=== PATIENT | male | born 1970 | race Caucasian/White ===

== ENCOUNTER 2019-05-21 17:46 | Inpatient (IN) | payer BC, OTHER ==
[~2019-05-21] VITALS: Ht 167.6 cm; Wt 72.6 kg
--- NOTE | 2019-05-21 17:48 | NUR ---
Placed in room 3 . Placed on monitor worker, blood pressure machine and pulse oximeter. To gown for exam. Side rails up.Report received from Art RN
--- NOTE | 2019-05-21 17:50 | NUR ---
pt states he was watching the TV, he fell asleep, and felt dizzy. Pt does not report any other symptoms and is not in any distress. Will conitnue to monitor.
[2019-05-21 17:51] VITALS: BP_SYST 129
--- NOTE | 2019-05-21 17:58 | NUR ---
ER at bedside examining patient.
--- NOTE | 2019-05-21 18:05 | NUR ---
attempted to ambulate the pt per Dr. Oliver's. Pt was unsteady and begain leaning to the left side.
[2019-05-21] MEDS ORDERED: NACL 0.9% 1,000 ML IV ONE ×2 (18:07→20:45)
[2019-05-21] MEDS ORDERED: NACL 0.9% 2,000 ML IV ONE (18:15)
[2019-05-21 18:33] LABS: BILIRUBIN,URINE NEGATIVE (NEGATIVE); BLOOD, URINE NEGATIVE (NEGATIVE); CLARITY/URINE CLEAR (CLEAR); COLOR,URINE YELLOW (YELLOW); GLUCOSE,URINE NEGATIVE (NEGATIVE); KETONES,URINE NEGATIVE (NEGATIVE); LEUKOCYTE ESTERASE ,URINE NEGATIVE (NEGATIVE); NITRITE, URINE NEGATIVE (NEGATIVE); PROTEIN URINE NEGATIVE (NEGATIVE); UROBILINOGEN,URINE 0.2 (0.2-1.0)
[2019-05-21] MEDS ORDERED: MECLIZINE HCL 25 MG TABLET (ANITVERT) PO ONE (18:45)
--- NOTE | 2019-05-21 18:48 | NUR ---
Patient transported to radiology via WC, accompanied by rad staff.
[2019-05-21 18:55] LABS: BASOPHILS # (AUTO) 0.1 K/uL (0.0-0.2); BASOPHILS % (AUTO) 0.7 % (0.0-2.0); EOSINOPHILS # (AUTO) 0.2 K/uL (0.0-0.4); EOSINOPHILS % (AUTO) 2.1 % (0.0-4.0); HEMATOCRIT 51.9 % (36-54); HEMOGLOBIN 17.6 g/dL (14.0-18.0); LYMPHOCYTES # (AUTO) 2.9 K/uL (1.0-5.5); LYMPHOCYTES % (AUTO) 31.7 % (20.5-51.5); MEAN CORPUSCULAR HEMOGLOBIN 31 pg (27-31); MEAN CORPUSCULAR HGB CONC 34 % (32-36); MEAN CORPUSCULAR VOLUME 93 fL (79.0-98.0); MONOCYTES # (AUTO) 0.9 K/uL (0.0-1.0); NEUTROPHILS # (AUTO) 5.1 K/uL (1.8-7.7); NEUTROPHILS % (AUTO) 55.5 % (40.0-70.0); PLATELET COUNT (AUTO) 199 K/uL (130-430); RED BLOOD CELL COUNT(AUTO) 5.61 MIL/uL (4.2-6.2); RED CELL DISTRIBUTION WIDTH 12.9 % (9.0-15.0); WHITE BLOOD COUNT (AUTO) 9.1 K/uL (4.8-10.8)
[2019-05-21 18:59] LABS: BARBITURATE, URINE NEGATIVE (NEG <=200); BENZODIAZEPINE, URINE NEGATIVE (NEG <=150); CANNABINOID, URINE NEGATIVE (NEG <=50); COCAINE, URINE NEGATIVE (NEG <=150); METHAMPHETAMINES SCREEN,URINE NEGATIVE (NEG <=500); OPIATE, URINE NEGATIVE (NEG <=100); PHENCYCLIDINE SCREEN,URINE NEGATIVE (NEG <=25); UR TRICYCLIC ANTIDEPRESSANTS NEGATIVE (NEG <=300); URINE AMPHETAMINE NEGATIVE (NEG <=500); URINE METHADONE NEGATIVE (NEG <=200); URINE OXYCODONE SCREEN NEGATIVE (NEG <=100); URINE PROPOXYPHENE SCREEN NEGATIVE (NEG <=300)
[2019-05-21 19:02] LABS: PROTHROMBIN TIME 10.2 SECS (9.5-12.5)
[2019-05-21 19:03] LABS: ANION GAP 14 (5-15); CHLORIDE 108 mmol/L (98-107); GLUCOSE 92 mg/dL (70-99); POTASSIUM 4.2 mmol/L (3.5-5.1); SODIUM SERUM 144 mmol/L (136-145); UREA NITROGEN, BLOOD 19 mg/dL (8-21)
[2019-05-21 19:05] LABS: GFR AFRICAN AMERICAN 92 mL/min (>90)
--- NOTE | 2019-05-21 19:05 | NUR ---
Meclazine given per MD order.
[2019-05-21 19:09] LABS: ALANINE AMINOTRANSFERASE 38 U/L (12-78); ALBUMIN 4.1 g/dL (3.4-4.8); ASPARTATE AMINOTRANSFERASE 25 U/L (10-37); TOTAL BILIRUBIN 0.3 mg/dL (0.0-1.0)
[2019-05-21 19:10] LABS: ALCOHOL, BLOOD < 3 mg/dL (<10)
--- NOTE | 2019-05-21 19:10 | NUR ---
Care endorsed to Yash FLETCHER.
[2019-05-21 19:19] LABS: LIPASE 552 U/L (73-393)
[2019-05-21 19:44] LABS: CHOLESTEROL 192 mg/dL (<200); HDL CHOLESTEROL 48 mg/dL (>45); LDL CHOLESTEROL 114 mg/dL (<100); TRIGLYCERIDES 151 mg/dL (30-150)
--- NOTE | 2019-05-21 20:15 | NUR ---
VSS no s/s of acute distress. Resting on gurney rails up
--- NOTE | 2019-05-21 21:10 | NUR ---
Pt aware and has consented to receive IV contrast CT Studies
[2019-05-21] MEDS ORDERED: IOHEXOL 100 ML IV ONE (22:00)
--- NOTE | 2019-05-21 22:05 | NUR ---
Pt stated feeling a bit better now, and has expressed possible wish to sign out AMA. Dr. Olson aware
--- NOTE | 2019-05-21 23:08 | NUR ---
VSS no s/s of acute distress, resting on gurney rails up.
--- NOTE | 2019-05-22 | NUR ---
Dr. Olson bedside to update Pt. Verbally ordered 2nd IV access on L AC to be DC'd
[2019-05-22] MEDS ORDERED: ONDANSETRON HCL 4 MG/2 ML VIAL IVP PRN (01:00)
[2019-05-22] MEDS ORDERED: ACETAMINOPHEN 325 MG TABLET PO PRN (01:00)
[2019-05-22] MEDS ORDERED: 0.45% NACL 1,000 ML IV SCH (01:00)
--- NOTE | 2019-05-22 01:07 | NUR ---
Medication reconciliation completed with information provided by patient. Patient has no home medication.
--- NOTE | 2019-05-22 01:15 | NUR ---
ADMISSION NOTE Received patient from ER via lucie, received report from Arnol FLETCHER. Patient admitted with diagnosis of R/O CVA. Patient oriented to hospital routine, call light, toileting and safety-patient verbalized understanding.
--- NOTE | 2019-05-22 01:15 | NUR ---
Patient will be admitted to care of . Admitted to Telemetry unit. Will go to room 106B. Belongings list completed. Summary report printed. Report will be given at bedside.
--- NOTE | 2019-05-22 01:15 | NUR ---
Transfer to Telemetry via ACLS protocol. Licensed nurse present. IV present no signs or symptoms of infiltration.
[2019-05-22 01:20] VITALS: BP_SYST 123
--- NOTE | 2019-05-22 03:10 | NUR ---
Patient is asleep, no signs of acute respiratory distress observed. Call light with patient, bed alarm refused after patient education given on bed alarm benefits and risks and patient verbalized understanding, bed at lowest position. Plan of care discussed. Will continue to monitor.
--- NOTE | 2019-05-22 06:18 | NUR ---
CLOSING NOTES Patient resting in bed. No signs of acute respiratory distress observed. IV site, Right hand 22 g, IVF running, dressings c/d/i. Call light within reach, bed alarm refused after education provided, and bed at lowest position. All needs met throughout shift. Will endorse care to oncoming shift.
[2019-05-22 07:29] LABS: ALBUMIN 3.1 g/dL (3.4-4.8); CALCIUM 8.7 mg/dL (8.4-11.0); CREATININE 1.21 mg/dL (0.55-1.30); POTASSIUM 4.5 mmol/L (3.5-5.1); TOTAL BILIRUBIN 0.3 mg/dL (0.0-1.0)
--- NOTE | 2019-05-22 07:35 | NUR ---
OPENING NOTE Patient resting in the bed. No acute distress. AAO x 4. Denied of pain/chest pain. Skin warm and dry to touch. IV intact to right hand, no redness, no swelling, no drainage. On 1/2NS at 75ml/hr, infusing well. Discussed the safety issue, use call light when needs help, and plan of care, verbally understanding. Safety measure maintained. Call light within reached. Bed locked in low position, side rails up. Refused bed alarm, risk and benefit explained, verbally understanding. Will continue to monitor.
[2019-05-22 07:36] LABS: BASOPHILS % (AUTO) 0.3 % (0.0-2.0); EOSINOPHILS # (AUTO) 0.2 K/uL (0.0-0.4); EOSINOPHILS % (AUTO) 2.4 % (0.0-4.0); HEMATOCRIT 45.5 % (36-54); HEMOGLOBIN 15.3 g/dL (14.0-18.0); LYMPHOCYTES # (AUTO) 3.1 K/uL (1.0-5.5); LYMPHOCYTES % (AUTO) 34.8 % (20.5-51.5); MEAN CORPUSCULAR HEMOGLOBIN 31 pg (27-31); MEAN CORPUSCULAR HGB CONC 34 % (32-36); MEAN CORPUSCULAR VOLUME 93 fL (79.0-98.0); MONOCYTES # (AUTO) 0.8 K/uL (0.0-1.0); MONOCYTES % (AUTO) 8.4 % (1.7-9.3); NEUTROPHILS # (AUTO) 4.9 K/uL (1.8-7.7); NEUTROPHILS % (AUTO) 54.1 % (40.0-70.0); PLATELET COUNT (AUTO) 186 K/uL (130-430); RED BLOOD CELL COUNT(AUTO) 4.88 MIL/uL (4.2-6.2); RED CELL DISTRIBUTION WIDTH 12.6 % (9.0-15.0)
[2019-05-22 07:50] VITALS: BP_SYST 111
--- NOTE | 2019-05-22 08:15 | NUR ---
PATIENT STATED WANTS TO GO HOME Patient stated "I want to go home and asked what time will the MRI to do done". Explained needs to wait the doctor come to see him and will follow up the time for MRI. If he really want to go home, may sign AMA and explained the risk and benefit of signing AMA, verbally understanding.
[2019-05-22] MEDS ORDERED: ASPIRIN 81 MG TABLET(ECOTRIN) PO SCH (09:00)
[2019-05-22] MEDS ORDERED: SIMVASTATIN 40 MG TABLET PO SCH (09:00)
--- NOTE | 2019-05-22 09:15 | NUR ---
MRI WILL COME AROUND 1145 Informed to the patient, MRI will come around 1145. Patient resting in the bed. No acute distress. Family at bedside. Call light within reached. Bed locked in low position, side rails up. Continue to monitor.
--- NOTE | 2019-05-22 10:15 | NUR ---
SEEN AND EXAMINED BY SHERRON RUTH WITH ORDER RECEIVED.
[2019-05-22 12:00] VITALS: BP_SYST 113
--- NOTE | 2019-05-22 12:00 | NUR ---
ROUND Patient resting in the bed and talking via phone. No acute distress. Family at bedside. Safety measure maintained. Call light within reached. Bed locked in low position, side rails up. Patient waiting for MRI. Continue to monitor.
--- NOTE | 2019-05-22 12:50 | NUR ---
OFF UNIT FOR MRI Patient off the unit for MRI of brain via wheelchair in stable condition. Per radiology patient will go to carotid artery ultrasound after MRI.
--- NOTE | 2019-05-22 14:10 | NUR ---
BACK TO UNIT FROM RADIOLOGY VIA WHEELCHAIR IN STABLE CONDITION.
--- NOTE | 2019-05-22 14:40 | NUR ---
2D ECHO DONE AT BEDSIDE.
--- NOTE | 2019-05-22 14:50 | NUR ---
CALLED SHERRON RUTH REGARDING THE PATIENT WANTED TO GO HOME.
--- NOTE | 2019-05-22 15:20 | NUR ---
AMA: Patient does not wish to proceed with medical care recommended by Dr. Bradley. Patient stated "I do not want to wait doctor to call back for discharge order. I will sign AMA". Patient given information related to possible complications, up to and including , which could occur as a result of leaving hospital at this time. Patient verbalizes understanding of risks involved leaving against medical advice. Patient has signed AMA form.
--- NOTE | 2019-05-22 15:40 | NUR ---
AUSTYN SOSA RAJNISH CALLED BACK AND INFORMED PATIENT SIGNED AMA.
== END 2019-05-22 15:20 | disposition left against medical advice (07) | DRG 149 ==
LOC: SED 17:46 → STU 05-22 00:53
PROVIDERS: ADMIT Internal Medicine Hospice and Palliative Medicine; ATTEND Internal Medicine Hospice and Palliative Medicine
DX: R42 Dizziness and giddiness (principal); E78.5 Hyperlipidemia, unspecified
CPT/HCPCS: 36415; 70450-TC; 70496; 70498; 70551; 71045; 80053; 80061; 80307; 81003; 82550-TC; 83605; 83690-TC; 84484; 85025; 85610-TC; 85730-TC; 87040-TC; 93005; 93306; 93880; 96360; 96361; 99285; G0378; G0482; J8597; Q9967